=== PATIENT | female | born 2000 | race Caucasian/White ===

== ENCOUNTER 2023-06-03 22:41 | Emergency (ER) | payer OTHER, SELFPAY ==
--- NOTE | ~2023-06-03 | CT_ITS ---
Non-contrast Head CT History: Headache, seizure Technique: Axial non-contrast imaging of the brain was performed. Dose reduction technique was used on this scan by utilizing automated exposure control and iterative reconstruction technique. The dose -length product (DLP) was 605.33 mGy-cm. Findings: There is no evidence of intracranial hemorrhage, mass lesion, or acute infarct. Brain par enchyma appears normal. The ventricles and subarachnoid spaces are normal in size. The calvarium ap pears normal. The visualized paranasal sinuses and mastoid air cells are clear. Impression: No significant abnormality seen. Reviewed, dictated and finalized at location . ANICAL SERVICE SPECIALIST Impression: No significant abnormality seen.
[2023-06-03 22:41] VITALS: BP 107/72; PULSE 77; RESP 10; TEMP 37.2; O2SAT 99
[2023-06-03 22:48] VITALS: BP 107/72; PULSE 77; PULSE 82; RESP 10; TEMP 37.2; O2SAT 100
[2023-06-04] LABS: Basophils Percent Auto 0.3 % (0.2-1.2); Hematocrit 41.8 % (37.0-47.0); Hemoglobin 14.6 g/dL (12.0-15.0); Immature Granulocyte Absolute 0.06 K/mm3 (0.00-0.031); Immature Granulocyte Percent A 0.6 % (0-0.5); Lymphocytes Absolute Auto 1.27 K/mm3 (0.9-3.2); Lymphocytes Percent Auto 13.7 % (18.3-44.2); Mean Corpuscular HGB Conc 34.9 g/dl (32-36); Mean Corpuscular Hemoglobin 30.4 pg (26-34); Mean Corpuscular Volume 87.1 fl (80-100); Mean Platelet Volume 10.2 fl (7.4-10.4); Monocytes Absolute Auto 0.4 K/mm3 (0.1-0.6); Monocytes Percent Auto 4.1 % (2.6-8.5); Neutrophils Absolute Auto 7.6 K/mm3 (1.3-6.7); Neutrophils Percent Auto 81.3 % (45.5-73.1); Platelet Count Result 236 k/mm3 (150-375); Red Cell Distribution Width 12.7 % (11.5-14.5); White Blood Count 9.3 K/mm3 (4.5-10.0)
[2023-06-04] MEDS: levETIRAcetam 1000MG/NACL100ML 1,000 MG/100 ML BAG 400 MG IVPB
[2023-06-04] MEDS: SODIUM CHLORIDE 0.9% IV 1,000 ML 999 ML IV CONT
[2023-06-04 00:05] LABS: Alanine Aminotransferase 22 U/L (6-35); Albumin Level 4.5 g/dL (3.5-5.1); Alkaline Phosphatase 60 U/L (38-126); Anion Gap 11 mmol/L (8-16); Aspartate Amino Transferase 28 U/L (14-36); Bilirubin,Total 1.3 mg/dL (0.2-1.3); Blood Urea Nitrogen 9 mg/dL (7-17); Calcium 9.1 mg/dL (8.4-10.2); Carbon Dioxide 20 mmol/L (22-30); Chloride 103 mmol/L (98-107); Estimated CRCL calculation 112 ml/min; Estimated Glomerular Filt Rate > 60; Glucose 99 mg/dL (65-110); Potassium 3.6 mmol/L (3.4-5.0); Sodium 134 mmol/L (137-145)
--- NOTE | 2023-06-04 00:42 | ED.GENADULT ---
HPI - General Adult General Chief complaint: Seizure Stated complaint: seizure Time Seen by Provider: 06/03/23 23:37 History of Present Illness HPI narrative: Patient is a 23-year-old female presents the emergency department with chief complaint of seizures patient has prior history of seizure disorder and takes Keppra the patient states that her last seizure was in April of 2022 reports that she missed a couple doses of her Keppra and also stayed up last night drinking the patient states that she vomited up her eye Keppra home and reports that today she had 2 generalized seizures. The patient reports she has a headache afterwards but reports no injuries. Related Data Allergies Allergy/AdvReac Type Severity Reaction Status Date / Time No Known Allergies Allergy Verified 06/03/23 22:54 Review of Systems Review of Systems: A 10 system review of systems was completed on the patient and is negative except for what is stated in the HPI. Nursing and ancillary documentation was reviewed. Exam Narrative: GENERAL: Well-appearing, well-nourished, and in no acute distress. HEAD: Normocephalic, atraumatic. EYES: PERRLA and EOMI. ENT: Nares clear, no rhinorrhea or epistaxis. Mucous membranes moist. NECK: Supple. CHEST: Clear to auscultation. No respiratory distress. HEART: Regular rate and rhythm. No murmur heard. Normal peripheral pulses. ABDOMEN: Soft, nontender, nondistended, normal active bowel sounds. EXTREMITIES: Normal range of motion. No edema. SKIN: Warm, dry, no rash. NEURO: No focal deficits. Alert and oriented x3. PSYCH: Normal mood and affect. Course Vital Signs Vital signs: Vital Signs Temperature 37.2 C 06/03/23 22:41 Pulse Rate 77 06/03/23 22:41 Respiratory Rate 10 L 06/03/23 22:41 Blood Pressure 107/72 06/03/23 22:41 Pulse Oximetry 99 06/03/23 22:41 Oxygen Delivery Room Air 06/03/23 22:41 Temperature 37.2 C 06/03/23 22:48 Pulse Rate 73 06/04/23 01:30 Respiratory Rate 20 06/04/23 01:30 Blood Pressure 108/66 06/04/23 01:30 Pulse Oximetry 98 06/04/23 01:30 Oxygen Delivery Room Air 06/03/23 22:48 Medical Decision Making MDM Narrative Medical decision making narrative: Differential diagnosis includes noncompliance, breakthrough seizure, dehydration, Patient was given an IV dose of Keppra since she missed her normal dose of Keppra. CT head was obtained which showed no acute abnormality. Laboratory studies showed no acute abnormality Vital Signs Vital Signs: Vital Signs Temperature 37.2 C 06/03/23 22:41 Pulse Rate 77 06/03/23 22:41 Respiratory Rate 10 L 06/03/23 22:41 Blood Pressure 107/72 06/03/23 22:41 Pulse Oximetry 99 06/03/23 22:41 Oxygen Delivery Room Air 06/03/23 22:41 Temperature 37.2 C 06/03/23 22:48 Pulse Rate 73 06/04/23 01:30 Respiratory Rate 20 06/04/23 01:30 Blood Pressure 108/66 06/04/23 01:30 Pulse Oximetry 98 06/04/23 01:30 Oxygen Delivery Room Air 06/03/23 22:48 Lab Data 06/03/23 22:56 06/03/23 22:56 Labs: Lab Results 06/03/23 06/04/23 Range/Units 22:56 01:29 WBC 9.3 (4.5-10.0) K/mm3 RBC 4.80 (4.2-5.4) M/mm3 Hgb 14.6 (12.0-15.0) g/dL Hct 41.8 (37.0-47.0) % MCV 87.1 (80-100) fl MCH 30.4 (26-34) pg MCHC 34.9 (32-36) g/dl RDW 12.7 (11.5-14.5) % Plt Count 236 (150-375) k/mm3 MPV 10.2 (7.4-10.4) fl Immature Gran % (Auto) 0.6 H (0-0.5) % Neut % (Auto) 81.3 H (45.5-73.1) % Lymph % (Auto) 13.7 L (18.3-44.2) % [place] % (Auto) 4.1 (2.6-8.5) % Eos % (Auto) 0.0 (0-4.4) % Baso % (Auto) 0.3 (0.2-1.2) % Lymph # (Auto) 1.27 (0.9-3.2) K/mm3 [place] # (Auto) 0.4 (0.1-0.6) K/mm3 Eos # (Auto) 0.0 (0-0.3) K/mm3 Baso # (Auto) 0.0 (0.0-0.1) K/mm3 Abs Immat Gran (auto) 0.06 H (0.00-0.031) K/mm3 Absolute Neuts (auto) 7.6 H (1.3-6.7) K/mm3 Absolute Nucleated RBC 0.0 (0.
[2023-06-04] MEDS: KETOROLAC 15 MG/ML VIAL (*BKC) IV PUSH (01:28)
[2023-06-04 01:30] VITALS: BP 108/66; PULSE 73; RESP 20; O2SAT 98
[2023-06-04 01:44] LABS: Appearance Urine Cloudy (Clear); Bacteria Urine None Seen /hpf; Bilirubin Urine Negative (Negative); Blood Urine Negative (Negative); Color Urine Yellow (Yellow); Glucose Urine UA Negative (Negative); Ketones Urine 2+ mg/dL (Negative); Leukocyte Esterase Ur Negative LEU/UL (Negative); Nitrate Urine Negative (Negative); Non Pathogenic Casts 0-2; Protein Urine 1+ mg/dL (Negative); RBC Urine 0-2 /hpf (0-2); Squamous Epithelial Cell Urine Occasional /hpf (Few); WBC Urine 0-5 /hpf; pH Urine 7.5 (5.0-9.0)
[2023-06-04 01:46] LABS: Add Urine Microscopic? YES
[2023-06-04 02:24] VITALS: BP 116/61; PULSE 83; RESP 20; O2SAT 95
== END 2023-06-04 02:30 | disposition home or self-care (01) ==
PROVIDERS: Emergency Provider Emergency Medicine
DX: G40.909 Epilepsy, unspecified, not intractable, without status epilepticus (principal); T42.6X6A Underdosing of other antiepileptic and sedative-hypnotic drugs, initial encounter
CPT/HCPCS: 36415; 70450; 80053; 81001; 81025; 85025; 96365; 96375; 99284; J1885; J1953; J7030